=== PATIENT | female | born 1985 | race African-American/Black ===

== ENCOUNTER 2017-03-15 13:25 | Emergency (ER) | payer BC, MEDICAID ==
[2017-03-15] MEDS ORDERED: ACETAMINOPHEN 325 MG TABLET PO ONE (15:40)
--- NOTE | 2017-03-15 15:55 | RADIOLOGY REPORT (SQ) ---
EXAM DESCRIPTION: TIBIA FIBULA RIGHT COMPLETED DATE/TIME: 03/15/2017 3:27 pm REASON FOR STUDY: medial bruising tenderness after fall on saturd COMPARISON: None. NUMBER OF VIEWS: Two views. TECHNIQUE: Two radiographic images acquired of the right tibia and fibula to include the knee and an kle in at least one projection. LIMITATIONS: None. FINDINGS: MINERALIZATION: Normal. BONES: No acute fracture or dislocation. A screw is present in the distal tibia. SOFT TISSUES: No obvious swelling or foreign body. OTHER: No other significant finding. IMPRESSION: NEGATIVE STUDY OF THE RIGHT TIBIA AND FIBULA. NO RADIOGRAPHIC EVIDENCE OF ACUTE INJURY. TECHNICAL DOCUMENTATION: JOB ID: [id number] [employer]- All Rights Reserved
--- NOTE | 2017-03-15 16:07 | ER Document Report ---
ED Fall - General Chief Complaint: Fall Stated Complaint: BACK PAIN Time Seen by Provider: 03/15/17 14:20 Notes: patient is a 31-year-old female presents emergency department complaining of right leg pain as well as low back pain. She states that she fell through her deck on Monday and has had continuing right leg pain. She is concerned that she broke something in her leg. She states she has been walking on it with pain in that area since her injury. Otherwise she admits to history of degenerative disc disease in her back and so she has had pain worse than her normal in her back but otherwise denies any urinary system gums, saddle anesthesia. Been able to ambulate without assistance. TRAVEL OUTSIDE OF THE [place] IN LAST 30 DAYS: No - Related data Allergies/Adverse Reactions: ibuprofen Adverse Reaction (Verified 03/15/17 13:28) GI upset Past Medical History - Social History Smoking Status: Current Every Day Smoker Chew tobacco use (# tins/day): No Frequency of alcohol use: None Drug Abuse: None Family History: Other - lupus - Past Medical History Cardiac Medical History: Denies: Hx Hypertension, Hx Heart Murmur Renal/ Medical History: Reports: Hx Ovarian Cysts - blood clot left ovary 2008. Denies: Hx Peritoneal Dialysis, Hx Pelvic Inflammatory Disease Malignancy Medical History: Denies: Hx Breast Cancer, Hx Cervical Cancer, Hx Ovarian Cancer Musculoskeltal Medical History: Denies Hx Fibromyalgia, Reports Hx Musculoskeletal Deformity Psychiatric Medical History: Reports: Hx Depression - in past Denies: Hx Bipolar Disorder, Hx Post Traumatic Stress Disorder, Hx Schizophrenia Traumatic Medical History: Denies: Hx Fractures Infectious Medical History: Denies: Hx HIV Past Surgical History: Reports: Hx Section, Hx Orthopedic Surgery - scres rt ankle - Immunizations Immunizations up to date: Yes Hx Diphtheria, Pertussis, Tetanus Vaccination: Yes Review of Systems - Review of Systems Constitutional: No symptoms reported Musculoskeletal: See HPI -: Yes All other systems reviewed and negative Physical Exam - Vital signs Vitals: Temp Pulse Resp BP Pulse Ox 97.8 F 82 16 132/82 H 99 03/15/17 13:29 03/15/17 13:29 03/15/17 13:29 03/15/17 13:29 03/15/17 13:29 - Notes Notes: PHYSICAL EXAM GENERAL: Alert, interacts well. LUNGS: Clear to auscultation bilaterally, no wheezes, rales, or rhonchi. No respiratory distress. HEART: Regular rate and rhythm. No murmurs, gallops, or rubs. ABDOMEN: Soft, nondistended, nontender. No guarding, rebound, or rigidity.. Bowel sounds present in all 4 quadrants. EXTREMITIES: Mild ecchymosis and edema over the right vann. Moves all 4 extremities spontaneously. No edema, radial and dorsalis pedis pulses 2/4 bilaterally. No cyanosis. Back: Mild paralumbar muscular tenderness to palpation. Otherwise no spinous process tenderness, deformities, step-offs. Patient able to ambulate without assistance. NEUROLOGICAL: Alert and oriented x4. Normal speech. PSYCH: Normal affect, normal mood. SKIN: Warm, dry, normal turgor. No rashes or lesions noted. Course - Re-evaluation Re-evalutation: 03/15/17 15:30 Patient is a 31-year-old female who is hemodynamic stable, no acute distress and afebrile. The patient presents with low back pain without signs of spinal cord compression, cauda equina syndrome, infection, aneurysm, or other serious etiology. The patient is neurologically intact. Given the extremely low risk of these diagnoses further testing and evaluation for these possibilities does not appear to be indicated at this time. The patient has been instructed to return if the symptoms worsen or change in any way. No evidence of a septic joint, gout flare, dislocation, or fracture on exam and imaging. Vitals wnl. At this time, I do not see an indication for labs or further imaging. Will discharge with conservative measures, return precautions, and follow-up recommendations. - Vital Signs Vital signs: Temp Pulse Resp BP Pulse Ox 97.8 F 66 16 126/85 H 99 03/15/17 16:20 03/15/17 16:20 03/15/17 16:20 03/15/17 16:20 03/15/17 16:20 - Diagnostic Test Radiology reviewed: Image reviewed, Reports reviewed Discharge - Discharge Clinical Impression: Low back pain Qualifiers: Chronicity: chronic Back pain laterality: unspecified Sciatica presence: without sciatica Qualified Code(s): M54.5 - Low back pain Leg injury Qualifiers: Encounter type: initial encounter Laterality: right Qualified Code(s): S89.91XA - Unspecified injury of right lower leg, initial encounter Condition: Good Disposition: HOME, SELF-CARE Additional Instructions: Regarding your leg, please keep it elevated using ice 20 minutes on/off, take tylenol as directed [id number] LOW BACK PAIN: Three out of every four people will have an episode of disabling back pain during their lifetime. Most commonly the pain is due to straining of the muscles and ligaments in the low back. Usual treatment includes: (1) Rest on a firm surface. Avoid lying on your stomach. (2) Ice pack the painful area. After a few days, gentle heat may be used intermittently to relax the area, or ice packs can be continued. (3) Medication may be needed -- muscle relaxers and antiinflammatory medicines are commonly used. (4) As the back improves, exercises are prescribed to strengthen the back and abdominal muscles. Your doctor will advise you on the proper care for your back at each stage in your recovery. You may be better in a few days -- or healing may take several weeks. If new symptoms of a "herniated disc" (radiation of pain, numbness, or tingling down the back of the leg or weakness in the leg) occur, you should be re-examined. Further testing may be necessary. MUSCLE RELAXERS: Muscle relaxing medications are usually prescribed for acute muscle spasm or injury to the neck and back. They are often combined with antiinflammatory pain medication for increased relief. You may stop the muscle relaxer when the pain and stiffness have improved. Start the medication again if spasms recur. Muscle relaxers may cause drowsiness, especially with the first dose. Do not operate machinery or drive while under the effects of the medication. Most muscle relaxers last up to 24 hours. Do not combine the medication with alcohol. ICE PACKS: Apply ice packs frequently against the painful area. Many different schedules are recommended, such as "20 minutes on, 20 minutes off" or "one hour ice, two hours rest." If you need to work, you may need to go longer between ice treatments. You should plan to have the area ice packed AT LEAST one fourth of the time. The ice should be applied over the wrap, tape, or splint, or over a layer of cloth -- not directly against the skin. Some ice bags have a built-in cloth and can be put directly on the skin. WARM PACKS: After approximately two days, apply gentle heat (such as a heating pad or hot water bottle) for about 20 to 30 minutes about every two hours -- at least four times daily. Warmth and elevation will help you make a more rapid recovery , and will ease the pain considerably. Do not use HOT heat, and never apply heat for longer than 30 minutes. The continuous heat can invisibly damage skin and muscles -- even when no burn is seen on the surface. Damaged muscles can make you MORE sore. FOLLOW-UP CARE: If you have been referred to a physician for follow-up care, call the physician s office for an appointment as you were instructed or within the next two days. If you experience worsening or a significant change in your symptoms, notify the physician immediately or return to the Emergency Department at any time for re-evaluation. Prescriptions: Cyclobenzaprine HCl [Flexeril 10 mg Tablet] 10 mg PO TIDP PRN #15 tab PRN Reason: Methylprednisolone [Medrol Dosepack (4 mg/Tab) 21 Tab/Dosepak] 4 mg PO ASDIR PRN #21 tab.ds.pk PRN Reason: Forms: Return to Work
[2017-03-15 16:23] VITALS: BP 126/85
== END 2017-03-15 16:26 | disposition home or self-care (01) ==
LOC: ER 13:25
DX: S80.11XA Contusion of right lower leg, initial encounter (principal); W13.3XXA Fall through floor, initial encounter; M54.5 Low back pain; F17.200 Nicotine dependence, unspecified, uncomplicated
CPT/HCPCS: 99283

== ENCOUNTER 2018-01-05 04:55 | Emergency (ER) | payer SELFPAY ==
[2018-01-05] MEDS ORDERED: KETOROLAC TROMETHAMINE 60 MG/2 ML SDV IM ONE (05:28)
[2018-01-05] MEDS ORDERED: METHOCARBAMOL 750 MG TABLET PO ONE (05:28)
[2018-01-05 06:41] LABS: APPEARANCE,URINE CLEAR; BILIRUBIN,URINE NEGATIVE (NEGATIVE); COLOR,URINE YELLOW; GLUCOSE, URINE NEGATIVE (NEGATIVE); KETONES,URINE NEGATIVE (NEGATIVE); LEUKOCYTE ESTERASE,URINE NEGATIVE (NEGATIVE); NITRITE,URINE NEGATIVE (NEGATIVE); PROTEIN,URINE NEGATIVE (NEGATIVE); URINE SPECIFIC GRAVITY 1.023; UROBILINOGEN,URINE NEGATIVE mg/dL (<2.0)
--- NOTE | 2018-01-05 07:08 | ER Document Report ---
ED General - General Chief Complaint: Low Back Pain Stated Complaint: BACK PAIN Time Seen by Provider: 01/05/18 05:07 Mode of Arrival: Ambulatory Information source: Patient Notes: Patient is an otherwise healthy 32-year-old female who presents with chief complaint of low back pain over the last 2 days. Patient denies knowledge of any injury, denies any urinary symptoms. Patient reports that she has a history of chronic low back pain however she reports this feels much different. Pain is located in the lumbar spine and radiates up to the mid thoracic spine. Patient reports that it is a sharp stabbing pain. Patient denies any fever, headache or any other symptoms. Patient usually takes tramadol and naproxen for her pain. Patient has not taken this as she states she is out. Patient reports that she took Aleve with no relief. TRAVEL OUTSIDE OF THE [place] IN LAST 30 DAYS: No - Related Data Allergies/Adverse Reactions: ibuprofen Adverse Reaction (Verified 01/05/18 04:57) GI upset Past Medical History - General Information source: Patient - Social History Smoking Status: Never Smoker Chew tobacco use (# tins/day): No Frequency of alcohol use: None Drug Abuse: None Family History: Reviewed & Not Pertinent, Other - lupus Patient has suicidal ideation: No Patient has homicidal ideation: No - Past Medical History Cardiac Medical History: Denies: Hx Hypertension, Hx Heart Murmur Renal/ Medical History: Reports: Hx Ovarian Cysts - blood clot left ovary 2008. Denies: Hx Peritoneal Dialysis, Hx Pelvic Inflammatory Disease Malignancy Medical History: Denies: Hx Breast Cancer, Hx Cervical Cancer, Hx Ovarian Cancer Musculoskeletal Medical History: Denies Hx Fibromyalgia, Reports Hx Musculoskeletal Deformity Psychiatric Medical History: Reports: Hx Depression - in past Denies: Hx Bipolar Disorder, Hx Post Traumatic Stress Disorder, Hx Schizophrenia Traumatic Medical History: Denies: Hx Fractures Infectious Medical History: Denies: Hx HIV Past Surgical History: Reports: Hx Section, Hx Orthopedic Surgery - scres rt ankle - Immunizations Immunizations up to date: Yes Hx Diphtheria, Pertussis, Tetanus Vaccination: Yes Review of Systems - Review of Systems Constitutional: No symptoms reported EENT: No symptoms reported Cardiovascular: No symptoms reported Respiratory: No symptoms reported Gastrointestinal: No symptoms reported Genitourinary: No symptoms reported Female Genitourinary: No symptoms reported Musculoskeletal: See HPI Skin: No symptoms reported Hematologic/Lymphatic: No symptoms reported Neurological/Psychological: No symptoms reported Physical Exam - Notes Notes: PHYSICAL EXAMINATION: GENERAL: Well-appearing, well-nourished and in no acute distress. HEAD: Atraumatic, normocephalic. EYES: Pupils equal round and reactive to light, extraocular movements intact, conjunctiva are normal. ENT: Nares patent, oropharynx clear without exudates. Moist mucous membranes. NECK: Normal range of motion, supple without lymphadenopathy LUNGS: Breath sounds clear to auscultation bilaterally and equal. No wheezes rales or rhonchi. HEART: Regular rate and rhythm without murmurs ABDOMEN: Soft, nontender, nondistended abdomen. No guarding, no rebound. No masses appreciated. Female : deferred Musculoskeletal: Normal range of motion, no pitting or edema. No cyanosis. Tenderness to palpation to lumbar spine as well as bilateral paraspinous muscles. NEUROLOGICAL: Cranial nerves grossly intact. Normal speech, normal gait. Normal sensory, motor exams PSYCH: Normal mood, normal affect. SKIN: Warm, Dry, normal turgor, no rashes or lesions noted. Course - Re-evaluation Re-evalutation: Patient with likely exacerbation of chronic back pain. Will send a urine to check for infection or as patient does report that this pain is slightly different than her usual pain. Will also send patient for an x-ray to rule out any fractures. HCG is negative. Urinalysis unremarkable with no signs of infection. X-ray is normal. Patient reports significant reduction of her pain after administration of IM Toradol and p.o. Robaxin. Patient will be discharged home in stable condition. Patient encouraged to return to the emergency department if she develops worsening symptoms or develops a fever. Discharge - Discharge Clinical Impression: Back pain Qualifiers: Back pain location: low back pain Chronicity: chronic Back pain laterality: midline Sciatica presence: without sciatica Qualified Code(s): M54.5 - Low back pain; G89.29 - Other chronic pain; G89.29 - Other chronic pain Condition: Stable Disposition: HOME, SELF-CARE Additional Instructions: LOW BACK PAIN: Three out of every four people will have an episode of disabling back pain during their lifetime. Most commonly the pain is due to straining of the muscles and ligaments in the low back. Usual treatment includes: (1) Rest on a firm surface. Avoid lying on your stomach. (2) Ice pack the painful area. After a few days, gentle heat may be used intermittently to relax the area, or ice packs can be continued. (3) Medication may be needed -- muscle relaxers and antiinflammatory medicines are commonly used. (4) As the back improves, exercises are prescribed to strengthen the back and abdominal muscles. Your doctor will advise you on the proper care for your back at each stage in your recovery. You may be better in a few days -- or healing may take several weeks. If new symptoms of a "herniated disc" (radiation of pain, numbness, or tingling down the back of the leg or weakness in the leg) occur, you should be re-examined. Further testing may be necessary. PAIN MEDICATION INJECTION: You have received an injection of a pain medication. You should experience significant pain relief within 45 minutes. If this injection was a narcotic -- it will impair your judgement, slow your reaction time and make you sleepy (as well as relieve your pain). Narcotics also can cause nausea. You should not drive, work with machinery, or perform any task requiring mental alertness until all effects of the medication are gone -- six to eight hours. Do not take any alcohol, or sedatives, and do not take any other medication without checking with your physician. ORAL NARCOTIC MEDICATION: You have been given a prescription for pain control. This medication is a narcotic. It's best taken with food, as nausea can result if taken on an empty stomach. Don't operate machinery or drive within six hours of taking this medication. Do not combine this medicine with alcohol, or with any medication which can cause sedation (such as cold tablets or sleeping pills) unless you get permission from the physician. Narcotics tend to cause constipation. If possible, drink plenty of fluids and eat a diet high in fiber and fruits. Please be aware that prescription narcotics also have the potential for abuse. People become addicted to these medications because of the general sense of wellbeing that they induce. This feeling along with a significant reduction in tension, anxiety, and aggression provides a stimulating seductive quality to these drugs. Once your pain is under control, we encourage you to discard your unused narcotics. MUSCLE RELAXERS: Muscle relaxing medications are usually prescribed for acute muscle spasm or injury to the neck and back. They are often combined with antiinflammatory pain medication for increased relief. You may stop the muscle relaxer when the pain and stiffness have improved. Start the medication again if spasms recur. Muscle relaxers may cause drowsiness, especially with the first dose. Do not operate machinery or drive while under the effects of the medication. Most muscle relaxers last up to 24 hours. Do not combine the medication with alcohol. WARM PACKS: After approximately two days, apply gentle heat (such as a heating pad or hot water bottle) for about 20 to 30 minutes about every two hours -- at least four times daily. Warmth and elevation will help you make a more rapid recovery , and will ease the pain considerably. Do not use HOT heat, and never apply heat for longer than 30 minutes. The continuous heat can invisibly damage skin and muscles -- even when no burn is seen on the surface. Damaged muscles can make you MORE sore. FOLLOW-UP CARE: If you have been referred to a physician for follow-up care, call the physician s office for an appointment as you were instructed or within the next two days. If you experience worsening or a significant change in your symptoms, notify the physician immediately or return to the Emergency Department at any time for re-evaluation. Prescriptions: Methocarbamol [Robaxin 750 mg Tablet] 750 mg PO ASDIR PRN #40 tablet PRN Reason: Naproxen 500 mg PO BID #30 tablet Tramadol HCl 50 mg PO Q6H PRN #20 tablet PRN Reason: Severe Pain Forms: Treatment of Relative/Child Referrals: DEV UMANA PA-C [Primary Care Provider] - Follow up as needed
--- NOTE | 2018-01-05 07:13 | RADIOLOGY REPORT (SQ) ---
EXAM DESCRIPTION: XR LUMBAR SPINE ANTEROPOSTERIOR, LATERAL, AND OBLIQUES COMPLETED DATE/TME: 01/05/2018 05:28 CLINICAL HISTORY: 32 years, Female, back pain COMPARISON: None. FINDINGS: 4 views of the lumbar spine. 5 nonrib-bearing lumbar vertebrae. Pedicles identified throughout. Lumbar vertebral body height and intervertebral disc height preserved. No cortical step-offs or subluxation. No abnormalities of visualized sacrum. No abnormalities of visualized bony pelvis. IUD identified. No other abnormalities identified in the abdominal soft tissues. IMPRESSION: No acute abnormality of the lumbar spine by plain film criteria. 2010 [employer]- All Rights Reserved
[2018-01-05] MEDS ORDERED: HYDROCODONE/ACETAMINOPHEN 5-325 MG (6 TAB/ER DISP) PO PRN (07:29)
[2018-01-05 07:58] VITALS: BP 118/66
== END 2018-01-05 08:00 | disposition home or self-care (01) ==
LOC: ER 04:55
DX: G89.29 Other chronic pain (principal); M54.5 Low back pain
CPT/HCPCS: 99283; 96372; 81025; 81001; 72110; J1885; J3490

== ENCOUNTER 2019-06-24 04:55 | Inpatient (IN) | payer BC, MEDICAID ==
[2019-06-21 12:18] LABS: ABSOLUTE EOSINOPHILS # (AUTO) 0.1 10^3/uL (0.0-0.6); ABSOLUTE LYMPHOCYTES (AUTO) 1.1 10^3/uL (0.5-4.7); ABSOLUTE MONOCYTES (AUTO) 0.8 10^3/uL (0.1-1.4); ABSOLUTE NEUT (AUTO) 3.9 10^3/uL (1.7-8.2); BASOPHILS % (AUTO) 0.2 % (0-2); EOSINOPHILS % (AUTO) 1.5 % (0-6); HEMATOCRIT 34.3 % (36.0-47.0); LYMPHOCYTES % (AUTO) 18.7 % (13-45); MEAN CORPUSCULAR HEMOGLOBIN 22.9 pg (27.0-33.4); MEAN CORPUSCULAR HGB CONC 32.1 g/dL (32.0-36.0); MEAN CORPUSCULAR VOLUME 71 fl (80-97); PLATELET COUNT 156 10^3/uL (150-450); RED BLOOD COUNT 4.81 10^6/uL (3.72-5.28); RED CELL DISTRIBUTION WIDTH 15.9 % (11.5-14.0); SEGMENTED NEUTROPHILS % (AUTO) 66.6 % (42-78); TOTAL CELLS COUNTED % (AUTO) 100 %; WHITE BLOOD COUNT 5.9 10^3/uL (4.0-10.5)
[2019-06-21 12:29] LABS: APPEARANCE,URINE SLIGHTLY-CLOUDY; BILIRUBIN,URINE NEGATIVE (NEGATIVE); COLOR,URINE YELLOW; GLUCOSE, URINE NEGATIVE (NEGATIVE); KETONES,URINE NEGATIVE (NEGATIVE); LEUKOCYTE ESTERASE,URINE SMALL (NEGATIVE); NITRITE,URINE NEGATIVE (NEGATIVE); PROTEIN,URINE NEGATIVE (NEGATIVE); URINE SPECIFIC GRAVITY 1.014
[2019-06-21 12:43] LABS: URINE AMPHETAMINES SCREEN NEGATIVE; URINE BENZODIAZEPINES SCREEN NEGATIVE; URINE COCAINE SCREEN NEGATIVE; URINE MARIJUANA (THC) SCREEN NEGATIVE; URINE METHADONE SCREEN NEGATIVE; URINE PHENCYCLIDINE SCREEN NEGATIVE
[2019-06-21 13:30] LABS: URINE BARBITURATES SCREEN UNCONFIRMED POSITIVE
[2019-06-24] MEDS ORDERED: CEFAZOLIN 2 GM/D5W RTU 2 GM/50 ML RTUPB IV ONE (05:15)
[2019-06-24] MEDS ORDERED: CEFAZOLIN INJ 1 GM VIAL ONE (05:17)
[2019-06-24] MEDS ORDERED: MIDAZOLAM 2 MG/2 ML INJ ONE (07:28)
[2019-06-24] MEDS ORDERED: DIPHENHYDRAMINE HCL 50 MG/ML VIAL ONE ×2 (07:28→08:57)
[2019-06-24] MEDS ORDERED: FENTANYL CITRATE INJ/PF 100 MCG/2 ML AMPUL ONE (07:28)
[2019-06-24] MEDS ORDERED: OXYTOCIN 10 UNIT/ML VIAL ONE (07:28)
[2019-06-24] MEDS ORDERED: ACETAMINOPHEN 1,000 MG/100 ML RTUPB IV ONE ×2 (07:28→09:07)
[2019-06-24] MEDS ORDERED: DIPHENHYDRAMINE HCL 50 MG/ML VIAL IV PRN (08:10)
[2019-06-24] MEDS ORDERED: PROMETHAZINE HCL INJ 25 MG/1 ML VIAL IV PRN ×2 (08:10→09:01)
[2019-06-24] MEDS ORDERED: MEPERIDINE HCL/PF INJ 25 MG/1 ML DISP.SYRIN IV PRN (08:10)
[2019-06-24] MEDS ORDERED: MORPHINE SULFATE 10 MG/ML INJ IV PRN (08:10)
[2019-06-24] MEDS ORDERED: ONDANSETRON HCL INJ/PF 4 MG/2 ML SDV IV PRN (08:10)
[2019-06-24] MEDS ORDERED: OXYCODONE-ACETAMINOPHEN 5-325 MG TABLET PO PRN ×3 (08:10→09:01)
[2019-06-24] MEDS ORDERED: FENTANYL CITRATE INJ/PF 100 MCG/2 ML AMPUL IV PRN ×3 (08:10)
[2019-06-24] MEDS ORDERED: OXYTOCIN/NORMAL SALINE 20 UNIT/1,000 ML RTUINJ ONE (08:14)
[2019-06-24] MEDS ORDERED: RINGERS SOLUTION,LACTATED 1,000 ML IV PRN (09:01)
[2019-06-24] MEDS ORDERED: DIPH/PERTUSS(ACELL)/TETANUS VAC/PF 0.5 ML SYR (>=10YO) IM PRN (09:01)
[2019-06-24] MEDS ORDERED: ACETAMINOPHEN 1,000 MG/100 ML RTUPB IV PRN (09:01)
[2019-06-24] MEDS ORDERED: OXYTOCIN/NORMAL SALINE 20 UNIT/1,000 ML RTUINJ IV PRN (09:01)
[2019-06-24] MEDS ORDERED: SIMETHICONE 80 MG TAB.CHEW PO PRN (09:01)
[2019-06-24] MEDS ORDERED: ACETAMINOPHEN 325 MG TABLET PO PRN (09:01)
[2019-06-24] MEDS ORDERED: MEASLES,MUMPS&RUBELLA VACC/PF 0.5 ML VIAL SUBCUT PRN (09:01)
--- NOTE | 2019-06-24 09:11 | Operative Report ---
Operative Report DATE OF SURGERY: 06/24/19 PREOPERATIVE DIAGNOSIS: IUP @ 39 3/, previous c/section, undesired fertility POSTOPERATIVE DIAGNOSIS: same OPERATION: section with [facility] tubal ligation SURGEON: EMERITA WHITMAN 1ST INFORMATION SYSTEMS DIRECTOR: RITA KIRK ANESTHESIA: Spinal TISSUE REMOVED OR ALTERED: bilateral fallopian tubes COMPLICATIONS: none ESTIMATED BLOOD LOSS: 750 cc INTRAOPERATIVE FINDINGS: Male infant cephalic presentation with Apgars of 8 and 9, weight 8 lbs 1 oz PROCEDURE: The patient was taken to the operating room, prepared and draped in anormal sterile fashion in a supine position with a leftward tilt. A transverse skin incision was made with a scalpel and carried through tothe underlying layer of fascia with the same scalpel. The fascia was excised in the midline and extended laterally with Xenia. The fascia was then dissected from the rectus muscle sharply with Xenia and the rectus muscle was divided and the peritoneal cavity was entered sharply with the same Metzenbaum. With good visualization of the bladder and the uterus the bladder blade was inserted. The hysterotomy was nicked with a scalpel and extended laterally with surgeon finger fraction. The was thendelivered atraumatically. The nose and mouth were suctioned with a suction bulb, the cord was clamped and cut and handed off to awaiting pediatricians. Cord blood was collected. The placenta was removed manually. The uterus was exteriorized and cleared of clots and debris. The hysterotomy was closed with 0 Monocryl in a running, locked fashion. A second layer of the same suture was used to imbricate to ensure hemostasis. Attention was then turned to the fallopian tubes where the right fallopian tube was grasped with a Lynn, the mesosalpinx was divided with a Bovie. a 3-1/2 cm segment of fallopian tube was tied off with 2 pieces of 2-0 chromic.this segment was ligated using Metzenbaums and the pedicles were made hemostatic with the Bovie. This procedure was repeated on the left fallopian tube without difficulty. The uterus was returned to the abdomen and peritoneal cavity was cleared of clots and debris. The pedicles were inspected and they were still hemostatic. The rectus muscle and peritoneum were repaired with mattress stitch of 2-0 Chromic. The fascia was closed with 0-Vicryl. The subcutaneous layer was closed with plain catgut and the skin was closed with 4-0 Vicryl. The patient tolerated the procedure well. Sponge, lap, and needle counts correct x2 and the patient was taken to recovery in stable condition.
[2019-06-24] MEDS ORDERED: INFLUENZA QUAD (6MOS+) 2019-20 VAC 0.5 ML SYR IM ONE (10:00)
[2019-06-24] MEDS ORDERED: SERTRALINE HCL 50 MG TABLET PO SCH (10:00)
[2019-06-24] MEDS ORDERED: CETIRIZINE 10 MG TABLET PO ONE (10:30)
[2019-06-24] MEDS: MORPHINE SULFATE 10 MG/ML INJ IV PRN ×2 (11:35→15:19)
[2019-06-24] MEDS: DOCUSATE SODIUM 100 MG CAPSULE PO SCH ×2 (12:21→18:42)
[2019-06-24] MEDS: ENOXAPARIN SODIUM INJ 100 MG/1 ML DISP.SYRIN SUBCUT SCH ×2 (12:22→22:00)
[2019-06-24] MEDS: PRENATAL VITAMIN W DHA CAPSULE PO SCH (12:23)
[2019-06-24] MEDS: OXYCODONE-ACETAMINOPHEN 5-325 MG TABLET PO PRN ×3 (13:12→23:21)
[2019-06-24] MEDS ORDERED: GLYCOPYRROLATE 1 MG/5 ML VIAL ONE (13:45)
[2019-06-24] MEDS ORDERED: KETOROLAC TROMETHAMINE 60 MG/2 ML SDV ONE (13:45)
[2019-06-24] MEDS ORDERED: ONDANSETRON HCL INJ/PF 4 MG/2 ML SDV ONE (13:45)
[2019-06-24] MEDS ORDERED: PHENYLEPHRINE HCL INJ/PF 10 MG/1 ML SDV ONE (13:45)
[2019-06-25] MEDS: OXYCODONE-ACETAMINOPHEN 5-325 MG TABLET PO PRN ×5 (04:48→21:37)
[2019-06-25] MEDS ORDERED: LIDOCAINE 0.5% INJ-PF (5 MG/ML) 50 ML SDV SUBCUT PRN (05:00)
[2019-06-25] MEDS ORDERED: LACTATED RINGERS 1000 ML IV PRN (05:00)
[2019-06-25 06:12] LABS: HEMATOCRIT 33.7 % (36.0-47.0); HEMOGLOBIN 10.9 g/dL (12.0-15.5); MEAN CORPUSCULAR HEMOGLOBIN 22.9 pg (27.0-33.4); MEAN CORPUSCULAR HGB CONC 32.3 g/dL (32.0-36.0); MEAN CORPUSCULAR VOLUME 71 fl (80-97); PLATELET COUNT 165 10^3/uL (150-450); RED BLOOD COUNT 4.74 10^6/uL (3.72-5.28); WHITE BLOOD COUNT 7.8 10^3/uL (4.0-10.5)
[2019-06-25] MEDS: PRENATAL VITAMIN W DHA CAPSULE PO SCH (09:00)
[2019-06-25] MEDS: ENOXAPARIN SODIUM INJ 100 MG/1 ML DISP.SYRIN SUBCUT SCH ×2 (09:00→21:37)
[2019-06-25] MEDS: DOCUSATE SODIUM 100 MG CAPSULE PO SCH ×2 (09:00→17:10)
[2019-06-25] MEDS: SERTRALINE HCL 50 MG TABLET PO SCH (09:09)
--- NOTE | 2019-06-25 09:35 | PDOC PROGRESS REPORT ---
Subjective-OB Progress Note for:: 06/25/19 Subjective: Pt doing well, no conerns. She reports moderate pain, is due for pain meds now. Has been OOB to void without difficulty. Reg diet this am. Reports light bleeding. Physical Exam (OB) Vital Signs: Temp Pulse Resp BP Pulse Ox 97.5 F 58 L 20 113/67 98 06/25/19 07:52 06/25/19 07:52 06/25/19 07:52 06/25/19 07:52 06/25/19 07:52 Intake & Output 06/24/19 06/25/19 06/26/19 06:59 06:59 06:59 Intake Total 1000 Output Total 300 Balance -300 1000 - PIH/Pre-Eclampsia DTR's: 1 + Clonus: Negative Headache: Absent Epigastric Pain: No Visual Changes: No - Dressing Removed: Yes Incision: Open, Well Approximated - Lochia Lochia Amount: Moderate 25-50 ml Lochia Color: Rubra/Red - Abdomen Description: Soft, Round Fundal Description: Firm, Midline Fundal Height: u/u - u/2 Objective-Diagnostic Laboratory: 06/25/19 05:54 06/25/19 05:54 WBC 7.8 RBC 4.74 Hgb 10.9 L Hct 33.7 L MCV 71 L MCH 22.9 L MCHC 32.3 RDW 16.0 H Plt Count 165 Assessment and Plan(PN) - Assessment and Plan (1) Acute blood loss anemia Is this a current diagnosis for this admission?: Yes (2) delivery delivered Is this a current diagnosis for this admission?: Yes (3) History of deep venous thrombosis Is this a current diagnosis for this admission?: Yes - Time Spent with Patient Time with patient: Less than 15 minutes Medications reviewed and adjusted accordingly: Yes - Disposition Anticipated Discharge: Home Within: within 24 hours
[2019-06-25] MEDS ORDERED: (PENDING PHARMACY ID) (Enoxaparin Sodium 100 MG) SQ SCH (10:00)
[2019-06-26] MEDS: OXYCODONE-ACETAMINOPHEN 5-325 MG TABLET PO PRN ×2 (05:15→11:07)
[2019-06-26 09:07] VITALS: BP 127/60
--- NOTE | 2019-06-26 10:42 | PDOC DISCHARGE SUMMARY ---
Impression - Admit/DC Date/PCP Admission Date/Primary Care Provider: 06/24/19 04:55 EMERITA WHITMAN MD Discharge Date: 06/26/19 - Discharge Diagnosis (2) History of deep venous thrombosis Is this a current diagnosis for this admission?: Yes (3) delivery delivered Is this a current diagnosis for this admission?: Yes (4) Acute blood loss anemia Is this a current diagnosis for this admission?: Yes - Assessment Summary: day 2 stable, ambulating, voiding and feeding without difficulty. Ready for discharge - Additional Information Resuscitation Status: Full Code Discharge Diet: As Tolerated, Regular Discharge Activity: Activity As Tolerated, Balance Activity w/Rest, No Driving, No Lifting Over 10 Pounds, No Lifting/Push/Pulling, Pelvic Rest, Slowly Increase Activity, No tub bath, Walk Frequently Referrals: EMERITA WHITMAN MD [Primary Care Provider] - Prescriptions: Oxycodone HCl/Acetaminophen [Percocet 5-325 mg Tablet] 2 tab PO Q4HP PRN #30 tablet PRN Reason: Docusate Sodium [Colace 100 mg Capsule] 100 mg PO BID #60 capsule Ferrous Sulfate [Feosol 325 mg Tablet] 325 mg PO BID #60 tablet Home Medications: Enoxaparin Sodium [Lovenox] 100 mg SQ BID 06/21/19 Prenat 115/Iron Fum/Folic/Dss [ 19 Tablet] 1 each PO DAILY 06/21/19 Sertraline HCl [Zoloft] 100 mg PO DAILY 06/21/19 Docusate Sodium [Colace 100 mg Capsule] 100 mg PO BID #60 capsule 06/26/19 Ferrous Sulfate [Feosol 325 mg Tablet] 325 mg PO BID #60 tablet 06/26/19 Oxycodone HCl/Acetaminophen [Percocet 5-325 mg Tablet] 2 tab PO Q4HP PRN #30 tablet 06/26/19 Additional Information: keep scheduled appt for next week Results Laboratory Results: WBC 7.8 10^3/uL (4.0-10.5) 06/25/19 05:54 RBC 4.74 10^6/uL (3.72-5.28) 06/25/19 05:54 Hgb 10.9 g/dL (12.0-15.5) L 06/25/19 05:54 Hct 33.7 % (36.0-47.0) L 06/25/19 05:54 MCV 71 fl (80-97) L 06/25/19 05:54 MCH 22.9 pg (27.0-33.4) L 06/25/19 05:54 MCHC 32.3 g/dL (32.0-36.0) 06/25/19 05:54 RDW 16.0 % (11.5-14.0) H 06/25/19 05:54 Plt Count 165 10^3/uL (150-450) 06/25/19 05:54 Lymph % (Auto) 18.7 % (13-45) 06/21/19 11:38 Crisp % (Auto) 13.0 % (3-13) 06/21/19 11:38 Eos % (Auto) 1.5 % (0-6) 06/21/19 11:38 Baso % (Auto) 0.2 % (0-2) 06/21/19 11:38 Absolute Neuts (auto) 3.9 10^3/uL (1.7-8.2) 06/21/19 11:38 Absolute Lymphs (auto) 1.1 10^3/uL (0.5-4.7) 06/21/19 11:38 Absolute Monos (auto) 0.8 10^3/uL (0.1-1.4) 06/21/19 11:38 Absolute Eos (auto) 0.1 10^3/uL (0.0-0.6) 06/21/19 11:38 Absolute Basos (auto) 0.0 10^3/uL (0.0-0.2) 06/21/19 11:38 Seg Neutrophils % 66.6 % (42-78) 06/21/19 11:38 Urine Color YELLOW 06/21/19 11:30 Urine Appearance SLIGHTLY-CLOUDY 06/21/19 11:30 Urine pH 7.0 (5.0-9.0) 06/21/19 11:30 Ur Specific [place] 1.014 06/21/19 11:30 Urine Protein NEGATIVE mg/dL (NEGATIVE) 06/21/19 11:30 Urine Glucose (UA) NEGATIVE mg/dL (NEGATIVE) 06/21/19 11:30 Urine Ketones NEGATIVE mg/dL (NEGATIVE) 06/21/19 11:30 Urine Blood NEGATIVE (NEGATIVE) 06/21/19 11:30 Urine Nitrite NEGATIVE (NEGATIVE) 06/21/19 11:30 Urine Bilirubin NEGATIVE (NEGATIVE) 06/21/19 11:30 Urine Urobilinogen 4.0 mg/dL (<2.0) H 06/21/19 11:30 Ur Leukocyte Esterase SMALL (NEGATIVE) H 06/21/19 11:30 Urine WBC (Auto) 2 /HPF 06/21/19 11:30 Urine RBC (Auto) 0 /HPF 06/21/19 11:30 Squamous Epi Cells Auto 8 /HPF 06/21/19 11:30 Urine Mucus (Auto) RARE /LPF 06/21/19 11:30 Urine Ascorbic Acid 20 (NEGATIVE) H 06/21/19 11:30 Urine Opiates Screen NEGATIVE 06/21/19 11:30 Urine Methadone Screen NEGATIVE 06/21/19 11:30 Ur Barbiturates Screen UNCONFIRMED POSITIVE 06/21/19 11:30 Ur Phencyclidine Scrn NEGATIVE 06/21/19 11:30 Ur Amphetamines Screen NEGATIVE 06/21/19 11:30 U Benzodiazepines Scrn NEGATIVE 06/21/19 11:30 Urine Cocaine Screen NEGATIVE 06/21/19 11:30 U Marijuana (THC) Screen NEGATIVE 06/21/19 11:30 Blood Type B POSITIVE 06/22/19 11:35 Antibody Screen NEGATIVE 06/22/19 11:35
[2019-06-26] MEDS: DOCUSATE SODIUM 100 MG CAPSULE PO SCH (11:06)
[2019-06-26] MEDS: SERTRALINE HCL 50 MG TABLET PO SCH (11:06)
[2019-06-26] MEDS: PRENATAL VITAMIN W DHA CAPSULE PO SCH (11:06)
[2019-06-26] MEDS: ENOXAPARIN SODIUM INJ 100 MG/1 ML DISP.SYRIN SUBCUT SCH (11:07)
== END 2019-06-26 14:06 | disposition home or self-care (01) | DRG 785 ==
LOC: 2S 04:55 → EEVIPCON 04:55
PROVIDERS: ADMIT Obstetrics & Gynecology; ATTEND Obstetrics & Gynecology
PROC: 0UB70ZZ Excision of Bilateral Fallopian Tubes, Open Approach (ICD-10-PCS; 2019-06-24)
PROC: 10D00Z1 Extraction of Products of Conception, Low, Open Approach (ICD-10-PCS; principal; 2019-06-24 07:45)
PROC: 3E02340 Introduction of Influenza Vaccine into Muscle, Percutaneous Approach (ICD-10-PCS; 2019-06-26)
DX: O34.211 Maternal care for low transverse scar from previous cesarean delivery (principal); O99.334 Smoking (tobacco) complicating childbirth; O99.344 Other mental disorders complicating childbirth; O99.02 Anemia complicating childbirth; D64.9 Anemia, unspecified; F32.9 Major depressive disorder, single episode, unspecified; F17.200 Nicotine dependence, unspecified, uncomplicated; Z37.0 Single live birth; Z98.51 Tubal ligation status; Z3A.39 39 weeks gestation of pregnancy; Z86.718 Personal history of other venous thrombosis and embolism; Z88.6 Allergy status to analgesic agent; Z23 Encounter for immunization
CPT/HCPCS: 1961; 36415; 80307; 81001; 85025; 85027; 86850; 86900; 86901; 88302; 90686; 90715; 94760; 94799; J0131; J1200; J1650; J1885; J2250; J2270; J2370; J2405; J2590; J3010; J3490; J7120

== ENCOUNTER 2020-04-16 08:14 | Day surgery (SDC) | payer BC, MEDICAID ==
[2020-04-13 11:10] LABS: APPEARANCE,URINE CLEAR; BILIRUBIN,URINE NEGATIVE (NEGATIVE); COLOR,URINE YELLOW; GLUCOSE, URINE NEGATIVE (NEGATIVE); KETONES,URINE NEGATIVE (NEGATIVE); LEUKOCYTE ESTERASE,URINE NEGATIVE (NEGATIVE); NITRITE,URINE NEGATIVE (NEGATIVE); PROTEIN,URINE NEGATIVE (NEGATIVE); URINE SPECIFIC GRAVITY 1.025; UROBILINOGEN,URINE NEGATIVE mg/dL (<2.0)
[2020-04-13 11:12] LABS: HEMATOCRIT 37.4 % (36.0-47.0); MEAN CORPUSCULAR HEMOGLOBIN 23.1 pg (27.0-33.4); MEAN CORPUSCULAR HGB CONC 32.1 g/dL (32.0-36.0); MEAN CORPUSCULAR VOLUME 72 fl (80-97); PLATELET COUNT 269 10^3/uL (150-450); RED BLOOD COUNT 5.19 10^6/uL (3.72-5.28); RED CELL DISTRIBUTION WIDTH 15.2 % (11.5-14.0); WHITE BLOOD COUNT 5.3 10^3/uL (4.0-10.5)
[~2020-04-16 08:14] MED LIST: DEXAMETHASONE SOD PHOSPHATE INJ 4 MG/1 ML VIAL ONE; FENTANYL CITRATE INJ/PF 100 MCG/2 ML AMPUL ONE; LACTATED RINGERS 1000 ML IV PRN; LIDOCAINE 0.5% INJ-PF (5 MG/ML) 50 ML SDV SUBCUT PRN; MIDAZOLAM 2 MG/2 ML INJ ONE; ONDANSETRON HCL INJ/PF 4 MG/2 ML SDV ONE; PROPOFOL INJ 200 MG/20 ML VIAL IV ONE
[2020-04-16] MEDS ORDERED: MIDAZOLAM 2 MG/2 ML INJ ONE (09:48)
[2020-04-16] MEDS ORDERED: HYDROMORPHONE HCL INJ/PF 2 MG/ML AMPULE ONE (09:50)
[2020-04-16] MEDS ORDERED: LIDOCAINE 1% INJ-PF (10 MG/ML) 30 ML SDV ONE (10:23)
[2020-04-16] MEDS ORDERED: SUCCINYLCHOLINE CHLORIDE INJ 200 MG/10 ML VIAL ONE (10:38)
[2020-04-16] MEDS ORDERED: DIPHENHYDRAMINE HCL 50 MG/ML VIAL IV PRN (10:49)
[2020-04-16] MEDS ORDERED: MEPERIDINE HCL/PF INJ 25 MG/1 ML DISP.SYRIN IV PRN (10:49)
[2020-04-16] MEDS ORDERED: OXYCODONE-ACETAMINOPHEN 5-325 MG TABLET PO PRN ×4 (10:49→11:06)
[2020-04-16] MEDS ORDERED: PROMETHAZINE HCL INJ 25 MG/1 ML VIAL IV PRN ×2 (10:49)
[2020-04-16] MEDS ORDERED: MORPHINE SULFATE 10 MG/ML INJ IV PRN (10:49)
[2020-04-16] MEDS ORDERED: RINGERS SOLUTION,LACTATED 1,000 ML IV PRN (11:06)
--- NOTE | 2020-04-16 11:18 | Operative Report ---
Operative Report DATE OF SURGERY: 04/16/20 PREOPERATIVE DIAGNOSIS: Abnormal uterine bleeding POSTOPERATIVE DIAGNOSIS: Same OPERATION: Hysteroscopy with NovaSure ablation SURGEON: EMERITA WHITMAN 1ST ADULT NURSE PRACTITIONER: RITA KIRK ANESTHESIA: GA COMPLICATIONS: None ESTIMATED BLOOD LOSS: 10 cc INTRAOPERATIVE FINDINGS: Uterus sounded to approximately 12 cm, 2 cm cervical length, 5 cm in length, width of 2-1/2. Burn time for 1 minute 14 seconds PROCEDURE: Patient was taken the operating room prepared and draped in a normal sterile fashion in a dorsal lithotomy position. Out cath was performed with approximately 100 cc of clear urine. Sterile speculum was placed into the vagina and the cervix was located and grasped on the anterior aspect with a single-tooth tenaculum. Uterine sound was introduced with the above findings noted. The cervix was dilated to accommodate the NovaSure to 8 Hegar. Hysteroscope was placed through the cervix and the uterine cavity was inspected and found to be intact a normal-appearing endometrium. NovaSure was placed through the cervix and opened. An integrity test was done. The device was then fired with the above findings. The NovaSure device was removed and the hysteroscope was once again introduced into the uterine cavity with the findings of adequate cortney 360 degrees around and up to the fundus. Was then concluded the instruments were removed sponge lap and needle counts were correct x2 patient was taken to recovery in stable condition
--- NOTE | 2020-04-16 11:20 | Discharge Summary ---
Discharge Summary (SDC) - Discharge Final Diagnosis: abnormal uterine bleeding Date of Surgery: 04/16/20 Discharge Date: 04/16/20 Condition: Stable Prescriptions: Oxycodone HCl/Acetaminophen [Percocet 5-325 mg Tablet] 1 tab PO Q4HP PRN #20 tablet PRN Reason: Referrals: DEV UMANA PA-C [Primary Care Provider] - Respiratory Treatments at Home: Deep Breathing/Coughing Additional Home Respiratory Instructions: SLEEP HEAD ELEVATED Discharge Activity: Activity As Tolerated, Balance Activity w/Rest, No Lifting Over 10 Pounds, Pelvic Rest, No tub bath Home Care Assistance: None Needed Report the Following to Your Physician Immediately: Shortness of Breath, Fever over 101 Degrees, Unusual Bleeding, Drainage-Foul Smelling, IV Site Infection Signs
[2020-04-16] MEDS ORDERED: ENOXAPARIN SODIUM INJ 40 MG/0.4 ML DISP.SYRIN SUBCUT ONE ×2 (11:50→16:15)
[2020-04-16] MEDS ORDERED: OXYCODONE-ACETAMINOPHEN 5-325 MG TABLET ONE (11:50)
[2020-04-16 16:15] VITALS: BP 137/95
== END 2020-04-16 13:23 | disposition home or self-care (01) ==
LOC: EEVIPCON 08:14 → OROUT 08:14
PROVIDERS: ATTEND Obstetrics & Gynecology
DX: N93.9 Abnormal uterine and vaginal bleeding, unspecified (principal); N92.0 Excessive and frequent menstruation with regular cycle; N94.6 Dysmenorrhea, unspecified; E66.9 Obesity, unspecified; Z03.818 Encounter for observation for suspected exposure to other biological agents ruled out; Z86.718 Personal history of other venous thrombosis and embolism; Z98.51 Tubal ligation status; Z87.891 Personal history of nicotine dependence; Z79.899 Other long term (current) drug therapy
CPT/HCPCS: 36415; 85027; 87635; 81025; 81001; 58563; J2250; J1100; J1650; J1170; J0330; J2405; J2704; C9803; J3010; J3490

== ENCOUNTER 2020-06-21 16:32 | Emergency (ER) | payer MEDICAID ==
--- NOTE | 2020-06-21 17:08 | ER Document Report ---
ED Medical Screen (RME) - General Chief Complaint: Abdominal Pain Stated Complaint: ABDOMINAL PAIN,BACK PAIN Time Seen by Provider: 06/21/20 16:55 Primary Care Provider: DEV UMANA PA-C [Primary Care Provider] - Follow up as needed Notes: HPI: 35-year-old female presenting to the emergency department essentially complaining of dysuria which has been ongoing for a week and a half, saw her PCP and was placed on Macrobid but does not feel like she has had any resolution of the urgency and frequency. Patient also reporting pelvic pain over the last several weeks. Patient had a uterine ablation by Dr. Feldman in April. Had a fall in May and feels like she has had continued cramping in the pelvic region since then PHYSICAL EXAMINATION: Obese abdomen, tenderness over the suprapubic and left pelvis on palpation. exam deferred in triage I have greeted and performed a rapid initial assessment of this patient. A comprehensive ED assessment and evaluation of the patient, analysis of test res ults and completion of medical decision making process will be conducted by an additional ED providers. Please note that clinical decision making for this patient was made during the 2019 pandemic of novel coronavirus which caused a significant strain on the healthcare system including at this particular facility. Criteria for admission discharge and level of care decisions as well as treatment decisions have necessarily changed TRAVEL OUTSIDE OF THE [place] IN LAST 30 DAYS: No - Related Data Allergies/Adverse Reactions: fentanyl Allergy (Severe, Verified 04/16/20 08:41) RASH, "FIRE", PRURITIS ibuprofen Adverse Reaction (Verified 04/16/20 08:41) SEVERE NAUSEA/VOMITING Past Medical History - Past Medical History Cardiac Medical History: Denies: Hx Coronary Artery Disease, Hx Heart Attack, Hx Hypertension, Hx Heart Murmur Pulmonary Medical History: Denies: Hx Asthma, Hx Bronchitis, Hx COPD, Hx Pneumonia Neurological Medical History: Denies: Hx Cerebrovascular Accident, Hx Seizures Renal/ Medical History: Reports: Hx Ovarian Cysts - blood clot left ovary 2008. Denies: Hx Peritoneal Dialysis, Hx Pelvic Inflammatory Disease Malignancy Medical History: Denies: Hx Breast Cancer, Hx Cervical Cancer, Hx Ovarian Cancer Musculoskeltal Medical History: Denies Hx Arthritis, Denies Hx Fibromyalgia, Reports Hx Musculoskeletal Deformity Psychiatric Medical History: Reports: Hx Depression - Denies: Hx Bipolar Disorder, Hx Post Traumatic Stress Disorder, Hx Schizophrenia Traumatic Medical History: Denies: Hx Fractures Infectious Medical History: Denies: Hx HIV Past Surgical History: Reports: Hx Section, Hx Orthopedic Surgery - scres rt ankle - Immunizations Immunizations up to date: Yes Hx Diphtheria, Pertussis, Tetanus Vaccination: No Physical Exam - Vital signs Vitals: Temp Pulse Resp BP Pulse Ox 98.1 F 76 20 137/95 H 100 06/21/20 16:41 06/21/20 16:41 06/21/20 16:41 06/21/20 16:41 06/21/20 16:41 Course - Vital Signs Vital signs: Temp Pulse Resp BP Pulse Ox 98.1 F 76 20 137/95 H 100 06/21/20 16:41 06/21/20 16:41 06/21/20 16:41 06/21/20 16:41 06/21/20 16:41 Doctor's Discharge - Discharge Referrals: DEV UMANA PA-C [Primary Care Provider] - Follow up as needed
[2020-06-21 17:38] LABS: ABSOLUTE BASOPHILS # (AUTO) 0.1 10^3/uL (0.0-0.2); ABSOLUTE EOSINOPHILS # (AUTO) 0.1 10^3/uL (0.0-0.6); ABSOLUTE LYMPHOCYTES (AUTO) 1.6 10^3/uL (0.5-4.7); ABSOLUTE MONOCYTES (AUTO) 0.6 10^3/uL (0.1-1.4); ABSOLUTE NEUT (AUTO) 3.3 10^3/uL (1.7-8.2); BASOPHILS % (AUTO) 1.1 % (0-2); EOSINOPHILS % (AUTO) 2.3 % (0-6); HEMATOCRIT 36.4 % (36.0-47.0); HEMOGLOBIN 11.5 g/dL (12.0-15.5); LYMPHOCYTES % (AUTO) 28.8 % (13-45); MEAN CORPUSCULAR HEMOGLOBIN 22.2 pg (27.0-33.4); MEAN CORPUSCULAR HGB CONC 31.6 g/dL (32.0-36.0); MEAN CORPUSCULAR VOLUME 70 fl (80-97); MONOCYTES % (AUTO) 9.8 % (3-13); PLATELET COUNT 253 10^3/uL (150-450); RED BLOOD COUNT 5.17 10^6/uL (3.72-5.28); RED CELL DISTRIBUTION WIDTH 15.6 % (11.5-14.0); TOTAL CELLS COUNTED % (AUTO) 100 %; WHITE BLOOD COUNT 5.7 10^3/uL (4.0-10.5)
[2020-06-21 17:59] LABS: ALKALINE PHOSPHATASE 77 U/L (38-126); ANION GAP 7 (5-19); ASPARTATE AMINO TRANSFERASE 24 U/L (14-36); BILIRUBIN,DIRECT 0.2 mg/dL (0.0-0.4); BILIRUBIN,TOTAL 0.3 mg/dL (0.2-1.3); BLOOD UREA NITROGEN 12 mg/dL (7-20); CALCIUM 9.1 mg/dL (8.4-10.2); CARBON DIOXIDE 30 mmol/L (22-30); CHLORIDE 102 mmol/L (98-107); GLUCOSE 86 mg/dL (75-110); TOTAL PROTEIN 7.5 g/dL (6.3-8.2)
[2020-06-21 18:09] LABS: APPEARANCE,URINE CLEAR; BILIRUBIN,URINE NEGATIVE (NEGATIVE); COLOR,URINE YELLOW; GLUCOSE, URINE NEGATIVE (NEGATIVE); KETONES,URINE NEGATIVE (NEGATIVE); LEUKOCYTE ESTERASE,URINE TRACE (NEGATIVE); NITRITE,URINE NEGATIVE (NEGATIVE); PROTEIN,URINE NEGATIVE (NEGATIVE); URINE SPECIFIC GRAVITY 1.027; UROBILINOGEN,URINE NEGATIVE mg/dL (<2.0)
--- NOTE | 2020-06-21 18:11 | RADIOLOGY REPORT (SQ) ---
EXAM DESCRIPTION: U/S NON OB PEL TV W/DOPPLER IMAGES COMPLETED DATE/TIME: 06/21/2020 4:46 pm REASON FOR STUDY: left pelvic pain. Prior endometrial ablation in April 2020. COMPARISON: 09/18/2014 TECHNIQUE: Dynamic and static grayscale images acquired of the pelvis via transvaginal approach and recorded on PACS. Additional selected color Doppler and spectral images recorded. LIMITATIONS: None. FINDINGS: UTERUS: Uterus is anteverted. Probable Caesarean scar at the lower uterine segment. Ther e is an ill-defined hypoechoic mass in the submucosal fundus probably a small uterine leiomyoma. Thi s has mass effect on the endometrial contour. No suspicious features. ENDOMETRIAL STRIPE: No focal or generalized thickening. No masses. CERVIX: No nabothian cysts. RIGHT OVARY AND DOPPLER: Normal size. No worrisome masses. Normal arterial vascular flow without evid ence for torsion. LEFT OVARY AND DOPPLER: Normal size. No worrisome masses. Normal arterial vascular flow without evide nce for torsion. FREE FLUID: None noted. OTHER: No other significant finding. MEASUREMENTS: UTERUS: 9 x 5 x 5.6 cm ENDOMETRIAL STRIPE: 9 mm RIGHT OVARY: 2.8 x 2.9 x 2.6 cm LEFT OVARY: 2.6 x 2 x 2.7 cm IMPRESSION: 1. Probable benign uterine leiomyoma. No sonographic abnormality of the uterus or ovaries. TECHNICAL DOCUMENTATION: JOB ID: [id number] [employer]- All Rights Reserved Rev-10/27 Reading location - IP/workstation name: [id number]
[2020-06-21] MEDS ORDERED: HYDROCODONE/ACETAMINOPHEN 5-325 MG (6 TAB/ER DISP) PO PRN (20:36)
--- NOTE | 2020-06-21 20:37 | ER Document Report ---
ED GI/ - General Chief Complaint: Lower Abdominal Pain Stated Complaint: ABDOMINAL PAIN,BACK PAIN Time Seen by Provider: 06/21/20 16:55 Primary Care Provider: EMERITA WHITMAN MD [ACTIVE STAFF] - Follow up tomorrow (Call tomorrow for an outpatient follow-up appointment.) DEV UMANA PA-C [Primary Care Provider] - Follow up as needed Mode of Arrival: Ambulatory Information source: Patient Notes: 35-year-old female presents to the emergency room complaining of pelvic pain and dysuria for the past 3 weeks. Patient states she slipped and fell off her porch June 04 falling forward hitting her stomach and her knees. Patient states she followed up with her primary care physician who diagnosed her with a UTI and put her on Macrobid and Pyridium and that was on June 16. Patient states she still having abdominal pain and still feels like she has a UTI. Denies any nausea, vomiting, no fevers. Has been taking Tylenol and a leftover Spangler with minimal relief. She denies any vaginal bleeding or vaginal discharge. Also states that she had an uterine ablation in April with Dr. Whitman for heavy menstrual cycles. States that time she was not told that she has any fibroids. Took Tylenol prior to arrival. Drove self to the emergency room. Denies secondary to bilateral tubal ligation in June 2019 TRAVEL OUTSIDE OF THE [place] IN LAST 30 DAYS: No - Related Data Allergies/Adverse Reactions: fentanyl Allergy (Severe, Verified 04/16/20 08:41) RASH, "FIRE", PRURITIS ibuprofen Adverse Reaction (Verified 04/16/20 08:41) SEVERE NAUSEA/VOMITING Home Medications: xanax 0.5mg prn, fishoil, apple cider chew, flonase, norco and macrobid Past Medical History - General Information source: Patient - Social History Smoking Status: Never Smoker Chew tobacco use (# tins/day): No Frequency of alcohol use: Social Drug Abuse: None Family History: Reviewed & Not Pertinent, Other - lupus Patient has homicidal ideation: No - Past Medical History Cardiac Medical History: Denies: Hx Coronary Artery Disease, Hx Heart Attack, Hx Hypertension, Hx Heart Murmur Pulmonary Medical History: Denies: Hx Asthma, Hx Bronchitis, Hx COPD, Hx Pneumonia Neurological Medical History: Denies: Hx Cerebrovascular Accident, Hx Seizures Renal/ Medical History: Reports: Hx Ovarian Cysts - blood clot left ovary 200 9. Denies: Hx Peritoneal Dialysis, Hx Pelvic Inflammatory Disease Malignancy Medical History: Denies: Hx Breast Cancer, Hx Cervical Cancer, Hx Ovarian Cancer Musculoskeletal Medical History: Denies Hx Arthritis, Denies Hx Fibromyalgia, Reports Hx Musculoskeletal Deformity Psychiatric Medical History: Reports: Hx Depression - Denies: Hx Bipolar Disorder, Hx Post Traumatic Stress Disorder, Hx Schizophrenia Traumatic Medical History: Denies: Hx Fractures Infectious Medical History: Denies: Hx HIV Past Surgical History: Reports: Hx Section - x3, Hx Gynecologic Surgery - ablation, Hx Oral Surgery - wisdom, Hx Orthopedic Surgery - screw rt ankle, Hx Tubal Ligation - Immunizations Immunizations up to date: Yes Hx Diphtheria, Pertussis, Tetanus Vaccination: No Review of Systems - Review of Systems Constitutional: No symptoms reported Cardiovascular: No symptoms reported Respiratory: No symptoms reported Gastrointestinal: Abdominal pain. denies: Diarrhea, Nausea, Vomiting Genitourinary: Dysuria. denies: Burning, Discharge, Hematuria, Urgency, Retention Musculoskeletal: No symptoms reported Skin: No symptoms reported Neurological/Psychological: No symptoms reported -: Yes All other systems reviewed and negative Physical Exam - Vital signs Vitals: Temp Pulse Resp BP Pulse Ox 98.1 F 76 20 137/95 H 100 06/21/20 16:41 06/21/20 16:41 06/21/20 16:41 06/21/20 16:41 06/21/20 16:41 - Notes Notes: GENERAL: Mild acute distress, non-toxic appearance. HEAD: Normal with no signs of head trauma. EYES: PERRLA, EOMI, conjunctiva normal, no discharge. EARS: Hearing grossly intact. NOSE: Normal. THROAT: Oropharynx is normal. NECK: Normal range of motion, no tenderness, supple, no lymphadenopathy, No adenopathy, no JVD. CHEST: Clear breath sounds bilaterally. No wheezes, rales, or rhonchi. CARDIAC: Regular rate and rhythm. S1 and S2, without murmurs, gallops, or rubs. VASCULAR: No Edema. Peripheral pulses normal and equal in all extremities. ABDOMEN: Normal and soft with no tenderness, no masses or pulsatile masses. No organomegaly. Positive bowel sounds x4. No CVA tenderness noted bilaterally. GASTROINTESTINAL: Bowel sounds normal LYMPATHTIC: No lymphadenopathy noted. MUSCULOSKELETAL: Good range of motion of all major joints. Extremities without clubbing, cyanosis or edema. NEUROLOGICAL: Alert and oriented x 3. No focal sensory or strength deficits. Speech normal. Follows commands appropriately. PSYCHIATRIC: Normal Affect, judgement and mood. SKIN: Normal appearance with no rashes or lesions. Course - Re-evaluation Re-evalutation: 06/21/20 20:45 Patient is resting comfortably reviewed, she is pain-free on exam. Denies any pain at this time. Reviewed all lab and ultrasound results with patient. Discussed findings of a uterine fibroid on her ultrasound. Patient states she has never been diagnosed with fibroids that she had a uterine ablation in April 2020 secondary to heavy menstrual cycles but were told there were no fibroids. Patient is aware that her urinalysis does not show any signs of infection. Recommend she follow-up this week with Dr. Whitman her PRACTICE ADVISOR. Will discharge home on a sixpack of Spangler. Patient was given strict return to the emergency room guidelines. Return for any new or worsening symptoms. All questions were answered. Patient verbalized understanding and agrees with plan of care. 06/21/20 22:21 - Vital Signs Vital signs: Temp Pulse Resp BP Pulse Ox 98.1 F 69 17 152/83 H 100 06/21/20 21:11 06/21/20 21:11 06/21/20 21:11 06/21/20 21:11 06/21/20 21:11 - Laboratory Results Result Diagrams: 06/21/20 17:27 06/21/20 17:27 Laboratory Results Interpreted: 06/21/20 06/21/20 17:27 17:27 Hgb 11.5 L MCV 70 L MCH 22.2 L MCHC 31.6 L RDW 15.6 H Ur Leukocyte Esterase TRACE H Urine Ascorbic Acid 20 H Critical Laboratory Results Reviewed: No Critical Results - Radiology Results Critical Radiology Results Reviewed: No Critical Results Discharge - Discharge Clinical Impression: Uterine fibroid Qualifiers: Uterine leiomyoma location: unspecified location Qualified Code(s): D25.9 - Leiomyoma of uterus, unspecified Condition: Stable Disposition: HOME, SELF-CARE Instructions: Abdominal Pain ([facility]) Additional Instructions: It has been noted on ultrasound that you have a small uterine fibroid. Take medications as prescribed. Follow-up this week with Dr. Whitman. Return to the emergency room for any new or worsening symptoms. Forms: Return to Work Referrals: DEV UMANA PA-C [Primary Care Provider] - Follow up as needed EMERITA WHITMAN MD [ACTIVE STAFF] - Follow up tomorrow (Call tomorrow for an outpatient follow-up appointment.)
[2020-06-21 21:12] VITALS: BP 152/83
== END 2020-06-21 21:11 | disposition home or self-care (01) ==
LOC: ER 16:32
DX: D25.9 Leiomyoma of uterus, unspecified (principal); N39.0 Urinary tract infection, site not specified; R10.2 Pelvic and perineal pain; R30.0 Dysuria; Z79.899 Other long term (current) drug therapy; Z98.890 Other specified postprocedural states; Z98.51 Tubal ligation status
CPT/HCPCS: 36415; 76830; 80053; 81001; 84703; 85025; 87086; 93976; 99284

== ENCOUNTER 2020-07-02 14:44 | Emergency (ER) | payer MEDICAID ==
--- NOTE | 2020-07-02 16:05 | ER Document Report ---
ED Medical Screen (RME) - General Chief Complaint: Abdominal Pain Stated Complaint: ABDOMINAL PAIN Time Seen by Provider: 07/02/20 15:47 Primary Care Provider: DEV UMANA PA-C [Primary Care Provider] - Follow up as needed TRAVEL OUTSIDE OF THE [place] IN LAST 30 DAYS: No - HPI Notes: Patient is a 35 y/o female who presents with intermittent pelvic pain that is exacerbated with her menstrual cycle. She reports nausea and vaginal itching but denies vaginal bleeding and discharge. She was diagnosed with trichomonas last week and will complete her course of flagyl tomorrow. She had a tubal ligation and endometrial ablation done last year and since then she has had increased pelvic pain during her periods. She sees Dr. Feldman at [facility]. - Related Data Allergies/Adverse Reactions: fentanyl Allergy (Severe, Verified 04/16/20 08:41) RASH, "FIRE", PRURITIS ibuprofen Adverse Reaction (Verified 04/16/20 08:41) SEVERE NAUSEA/VOMITING Past Medical History - Past Medical History Cardiac Medical History: Denies: Hx Coronary Artery Disease, Hx Heart Attack, Hx Hypertension, Hx Heart Murmur Pulmonary Medical History: Denies: Hx Asthma, Hx Bronchitis, Hx COPD, Hx Pneumonia Neurological Medical History: Denies: Hx Cerebrovascular Accident, Hx Seizures Renal/ Medical History: Reports: Hx Ovarian Cysts - blood clot left ovary 2008. Denies: Hx Peritoneal Dialysis, Hx Pelvic Inflammatory Disease Malignancy Medical History: Denies: Hx Breast Cancer, Hx Cervical Cancer, Hx Ovarian Cancer Musculoskeltal Medical History: Denies Hx Arthritis, Denies Hx Fibromyalgia, Reports Hx Musculoskeletal Deformity Psychiatric Medical History: Reports: Hx Depression - Denies: Hx Bipolar Disorder, Hx Post Traumatic Stress Disorder, Hx Schizophrenia Traumatic Medical History: Denies: Hx Fractures Infectious Medical History: Denies: Hx HIV Past Surgical History: Reports: Hx Section - x3, Hx Gynecologic Surgery - ablation, Hx Oral Surgery - wisdom, Hx Orthopedic Surgery - screw rt ankle, Hx Tubal Ligation - Immunizations Immunizations up to date: Yes Hx Diphtheria, Pertussis, Tetanus Vaccination: No Physical Exam - Vital signs Vitals: Temp Pulse Resp BP Pulse Ox 98.6 F 77 18 136/77 H 100 07/02/20 14:50 07/02/20 14:50 07/02/20 14:50 07/02/20 14:50 07/02/20 14:50 - Abdominal Bowel sounds: Normal Tenderness: Nontender Course - Re-evaluation Re-evalutation: I have greeted and performed a rapid initial assessment of this patient. A comprehensive ED assessment and evaluation of the patient, analysis of test results and completion of medical decision making process will be conducted by an additional ED providers. - Vital Signs Vital signs: Temp Pulse Resp BP Pulse Ox 98.6 F 77 18 136/77 H 100 07/02/20 14:50 07/02/20 14:50 07/02/20 14:50 07/02/20 14:50 07/02/20 14:50 Doctor's Discharge - Discharge Referrals: DEV UMANA PA-C [Primary Care Provider] - Follow up as needed
[2020-07-02 16:29] LABS: ABSOLUTE BASOPHILS # (AUTO) 0.1 10^3/uL (0.0-0.2); ABSOLUTE EOSINOPHILS # (AUTO) 0.1 10^3/uL (0.0-0.6); ABSOLUTE LYMPHOCYTES (AUTO) 1.5 10^3/uL (0.5-4.7); ABSOLUTE MONOCYTES (AUTO) 0.6 10^3/uL (0.1-1.4); ABSOLUTE NEUT (AUTO) 6.2 10^3/uL (1.7-8.2); BASOPHILS % (AUTO) 0.9 % (0-2); EOSINOPHILS % (AUTO) 1.4 % (0-6); HEMOGLOBIN 11.8 g/dL (12.0-15.5); MEAN CORPUSCULAR HEMOGLOBIN 22.5 pg (27.0-33.4); MEAN CORPUSCULAR HGB CONC 31.9 g/dL (32.0-36.0); MEAN CORPUSCULAR VOLUME 71 fl (80-97); MONOCYTES % (AUTO) 7.4 % (3-13); PLATELET COUNT 292 10^3/uL (150-450); RED BLOOD COUNT 5.25 10^6/uL (3.72-5.28); SEGMENTED NEUTROPHILS % (AUTO) 73.3 % (42-78); TOTAL CELLS COUNTED % (AUTO) 100 %; WHITE BLOOD COUNT 8.5 10^3/uL (4.0-10.5)
[2020-07-02 16:44] LABS: APPEARANCE,URINE CLEAR; BILIRUBIN,URINE NEGATIVE (NEGATIVE); COLOR,URINE YELLOW; GLUCOSE, URINE NEGATIVE (NEGATIVE); KETONES,URINE NEGATIVE (NEGATIVE); LEUKOCYTE ESTERASE,URINE MODERATE (NEGATIVE); NITRITE,URINE NEGATIVE (NEGATIVE); PROTEIN,URINE NEGATIVE (NEGATIVE); UROBILINOGEN,URINE NEGATIVE mg/dL (<2.0)
[2020-07-02 16:56] LABS: ALKALINE PHOSPHATASE 71 U/L (38-126); ANION GAP 7 (5-19); ASPARTATE AMINO TRANSFERASE 20 U/L (14-36); BILIRUBIN,DIRECT 0.2 mg/dL (0.0-0.4); BILIRUBIN,TOTAL 0.3 mg/dL (0.2-1.3); BLOOD UREA NITROGEN 12 mg/dL (7-20); CALCIUM 9.4 mg/dL (8.4-10.2); CARBON DIOXIDE 27 mmol/L (22-30); CHLORIDE 106 mmol/L (98-107); GLUCOSE 77 mg/dL (75-110); POTASSIUM 4.5 mmol/L (3.6-5.0); TOTAL PROTEIN 7.7 g/dL (6.3-8.2)
[2020-07-02] MEDS ORDERED: FLUCONAZOLE 100 MG TABLET PO ONE (20:00)
[2020-07-02] MEDS ORDERED: HYDROCODONE/ACETAMINOPHEN 5-325 MG (6 TAB/ER DISP) PO PRN (20:34)
--- NOTE | 2020-07-02 20:36 | ER Document Report ---
Entered by YOUNG AVERY SCRIBE 07/02/201951 Acting as scribe for:AURY RUFFIN DO ED General - General Chief Complaint: Abdominal Pain Stated Complaint: ABDOMINAL PAIN Time Seen by Provider: 07/02/20 15:47 Primary Care Provider: EMERITA WHITMAN MD [ACTIVE STAFF] - Follow up as needed DEV UMANA PA-C [Primary Care Provider] - Follow up as needed Information source: Patient Notes: This 35 year old female patient presents to the emergency department today with pelvic pain that is exacerbated with her menstrual period. Patient states she has recently had a uterine ablation, section, and tubal ligation. Patient states she has recently treated a UTI, visited OB last week for her pelvic pain, and was told it was due to her fibroids. Patient states she has an appointment with OB for a ultrasound. Patient states she was diagnosed with trichomonas last week and has x1.5 days left of her flagyl. Patient states she believes she has a yeast infection, and wants to test for STDs. Denies fever or chills. Patient states she fell x20 days ago on and may be the cause for her pelvic pain. TRAVEL OUTSIDE OF THE [place] IN LAST 30 DAYS: No - Related Data Allergies/Adverse Reactions: fentanyl Allergy (Severe, Verified 04/16/20 08:41) RASH, "FIRE", PRURITIS ibuprofen Adverse Reaction (Verified 04/16/20 08:41) SEVERE NAUSEA/VOMITING Past Medical History - General Information source: Patient, [facility] Records - Social History Smoking Status: Current Some Day Smoker Frequency of alcohol use: Occasional Lives with: Family Family History: Reviewed & Not Pertinent, Other - lupus Renal/ Medical History: Reports: Hx Ovarian Cysts - blood clot left ovary 2009 Musculoskeletal Medical History: Reports Hx Musculoskeletal Deformity Psychiatric Medical History: Reports: Hx Depression - Past Surgical History: Reports: Hx Section - x3, Hx Gynecologic Surgery - ablation, Hx Oral Surgery - wisdom, Hx Orthopedic Surgery - screw rt ankle, Hx Tubal Ligation - Immunizations Immunizations up to date: Yes Hx Diphtheria, Pertussis, Tetanus Vaccination: No Review of Systems - Review of Systems Constitutional: See HPI. denies: Chills, Fever EENT: No symptoms reported Cardiovascular: No symptoms reported Respiratory: No symptoms reported Gastrointestinal: No symptoms reported Genitourinary: No symptoms reported Female Genitourinary: See HPI, Other - pelvic pain Musculoskeletal: No symptoms reported Skin: No symptoms reported Hematologic/Lymphatic: No symptoms reported Neurological/Psychological: No symptoms reported -: Yes All other systems reviewed and negative Physical Exam - Vital signs Vitals: Temp Pulse Resp BP Pulse Ox 98.6 F 77 18 136/77 H 100 07/02/20 14:50 07/02/20 14:50 07/02/20 14:50 07/02/20 14:50 07/02/20 14:50 - General Notes: Alert. Appears non-toxic. - HEENT Head: Normocephalic, Atraumatic Eyes: Normal Pupils: PERRL - Respiratory Respiratory status: No respiratory distress Chest status: Nontender Breath sounds: Normal Chest palpation: Normal - Cardiovascular Rhythm: Regular Heart sounds: Normal auscultation Murmur: No - Abdominal Inspection: Obese Distension: No distension Bowel sounds: Normal Tenderness: Nontender - Extremities General upper extremity: Normal inspection, Normal ROM General lower extremity: Normal inspection, Normal ROM. No: Edema - Neurological Neuro grossly intact: Yes Cognition: Normal Orientation: AAOx4 Nida Coma Scale Eye Opening: Spontaneous Nida Coma Scale Verbal: Oriented Nida Coma Scale Motor: Obeys Commands Nida Coma Scale Total: 15 Speech: Normal Sensory: Normal - Psychological Associated symptoms: Normal affect, Normal mood - Skin Skin Temperature: Warm Skin Moisture: Dry Skin Color: Normal Course - Re-evaluation Re-evalutation: 07/02/20 20:28 MDM 35 year old female arrives with fear of perhaps having a STI and persistent pelvic pain. No fever or chills and certainly nontoxic here. Had valeria recently and sees Dr. Whitman locally as [employer] MD. She feels she must have a yeast exam from the antibiotics she recently finished (flagyl) for trichomonis. She denies dysuria and no abd pain. Does not want another pelvic exam so will have her self swab for sti. Discussed will call if they are +. - Vital Signs Vital signs: Temp Pulse Resp BP Pulse Ox 98.2 F 78 18 134/89 H 100 07/02/20 20:50 07/02/20 20:50 07/02/20 20:50 07/02/20 20:50 07/02/20 20:50 - Laboratory Results Result Diagrams: 07/02/20 16:15 07/02/20 16:15 Laboratory Results Interpreted: 07/02/20 07/02/20 16:15 16:15 Hgb 11.8 L MCV 71 L MCH 22.5 L MCHC 31.9 L RDW 15.0 H Ur Leukocyte Esterase MODERATE H Critical Laboratory Results Reviewed: No Critical Results - Radiology Results Critical Radiology Results Reviewed: No Critical Results Discharge - Discharge Clinical Impression: Pelvic pain Condition: Stable Disposition: HOME, SELF-CARE Instructions: Pelvic Pain ([facility]) Additional Instructions: Take the medicine as directed for pain. See Dr. Whitman in follow up. Please return here for worsening pain, fever, persistent vomiting, other problems or other concerns. Your yeast infection medicine was sent to [facility]. Prescriptions: Fluconazole [Diflucan] 150 mg PO Q2DAYS #3 tablet Referrals: DEV UMANA PA-C [Primary Care Provider] - Follow up as needed EMERITA WHITMAN MD [ACTIVE STAFF] - Follow up as needed I personally performed the services described in the documentation, reviewed and edited the documentation which was dictated to the scribe in my presence, and it accurately records my words and actions.
[2020-07-02 20:46] LABS: BACTERIA (WET MOUNT) 4+ BACTERIA SEEN; EPITHELIALS (WET MOUNT) 3+ EPITHELIALS SEEN; RBCS (WET MOUNT) NO RBCS SEEN; T.VAGINALIS (WET MOUNT) NO TRICHOMONAS SEEN; WBCS (WET MOUNT) 2+ WBCS SEEN; YEAST (WET MOUNT) YEAST SEEN
[2020-07-02 20:51] VITALS: BP 134/89
[2020-07-02 22:24] LABS: CHLAM PCR NOT DETECTED (NOT DETECT)
== END 2020-07-02 20:51 | disposition home or self-care (01) ==
LOC: ER 14:44
DX: R10.2 Pelvic and perineal pain (principal); R11.0 Nausea; L29.2 Pruritus vulvae; E66.9 Obesity, unspecified; F17.200 Nicotine dependence, unspecified, uncomplicated
CPT/HCPCS: 99284; 36415; 87210; 83690; 85025; 81025; 80053; 81001; 87491; 87591; J3490